=== PATIENT | male | born 1960 | race Caucasian/White ===

== ENCOUNTER 2017-10-02 08:15 | Inpatient (IN) | payer OTHER ==
[2018-02-19] MEDS ORDERED: TRANEXAMIC ACID 3,000 MG in NS (SYRINGE) 50 ML IRR ONE (06:00)
[2018-02-19] MEDS ORDERED: POVIDONE-IODINE 20 ML in SODIUM CL IRRIG SOLUTION 500 ML IRR ONE (06:00)
[2018-02-19] MEDS ORDERED: ROPIVACAINE 0.2% 80 MG, EPINEPHrine 0.2 MG, KETOROLAC TROMETHAMINE 30 MG in SYRINGE 0 ML IU ONE (06:00)
[2018-02-19] MEDS ORDERED: TRANEXAMIC ACID 1,000 MG in NS 100 ML IV ONE (06:00)
[2018-02-19] MEDS ORDERED: GABAPENTIN 300 MG CAP PO ONE (09:17)
[2018-02-19] MEDS ORDERED: ACETAMINOPHEN 325 MG TAB PO ONE (09:17)
[2018-02-19] MEDS ORDERED: DEXAMETHASONE 4 MG/ML VIAL IVP ONE (09:17)
[2018-02-19] MEDS ORDERED: ceFAZolin 2 GM/DEXTROSE 100 ML IV ONE (09:17)
[2018-02-19] MEDS ORDERED: ONDANSETRON 4 MG/2 ML VIAL IVP ONE (09:17)
[2018-02-19] MEDS ORDERED: FAMOTIDINE 20 MG TAB PO ONE (09:17)
[2018-02-19] MEDS ORDERED: LIDOCAINE 1% 2 ML INJ ID PRN (09:20)
[2018-02-19] MEDS ORDERED: LR 1,000 ML IV ONE (09:20)
[2018-02-19] MEDS ORDERED: LIDOCAINE 2% 5 ML SDV ONE (09:52)
[2018-02-19] MEDS ORDERED: PHENYLEPHRINE 10 MG/ML SDV ONE (09:52)
[2018-02-19] MEDS ORDERED: fentaNYL 100 MCG/2 ML INJ ONE (09:52)
[2018-02-19] MEDS ORDERED: TRANEXAMIC ACID 3,000 MG/50 ML BAG IRR ONE (09:52)
[2018-02-19] MEDS ORDERED: BUPIVACAINE/DEXTROSE 7.5MG/ML 2 ML SPINAL AMP SP ONE (09:52)
[2018-02-19] MEDS ORDERED: PROPOFOL/EMULSION 500 MG/50 ML BOTTLE IV ONE ×2 (09:52→12:10)
[2018-02-19] MEDS ORDERED: ceFAZolin 1 GM/5 ML SYR ONE (09:53)
--- NOTE | 2018-02-19 10:20 | PDHPUP ---
History & Physical Update H&P update statement: This history and physical update is based on an assessment of the patient which was completed after admission or registration (within 24 hours), but prior to the surgery/procedure. H&P update: H&P reviewed & patient examined
[2018-02-19 10:22] LABS: PLATELET COUNT 204 10^3/uL (150-400)
--- NOTE | 2018-02-19 10:31 | PDANEPAE ---
ANE History of Present Illness DJD R hip, here for R BABAR ANE Past Medical History - Cardiovascular History Hx Hypertension: No Hx Arrhythmias: No Hx Chest Pain: No Hx Coronary Artery / Peripheral Vascular Disease: No Hx CHF / Valvular Disease: No Hx Palpitations: No Cardiovascular History Comment: orthostatic hypotension - Pulmonary History Hx COPD: No Hx Asthma/Reactive Airway Disease: No Hx Recent Upper Respiratory Infection: No Hx Oxygen in Use at Home: No Hx Sleep Apnea: No Sleep Apnea Screening Result - Last Documented: Negative - Neurologic History Hx Cerebrovascular Accident: No Hx Seizures: No Hx Dementia: No - Endocrine History Hx Diabetes: No - Renal History Hx Renal Disorders: No - Liver History Hx Hepatic Disorders: No - Neurological & Psychiatric Hx Hx Neurological and Psychiatric Disorders: Yes Neurological / Psychiatric History Comment: depression - Cancer History Hx Cancer: Yes Cancer History Comment: skin CA on nose - Congenital Disorder History Hx Congenital Disorders: No - GI History Hx Gastrointestinal Disorders: No - Other Health History Other Health History: ezcema - right foot. osteoarthritis, right hip - Chronic Pain History Chronic Pain: No - Surgical History Prior Surgeries: appendectomy, 14 yrs old ANE Review of Systems Review of Systems: - Exercise capacity METS (RN): 5 METS ANE Patient History - Allergies Allergies/Adverse Reactions: No Allergies [NKDA] Allergy (Verified 02/10/18 09:04) - Home Medications Home Medications: Fludrocortisone Acetate 02/18/18 [Last Taken 02/18/18] Wellbutrin Xl 02/18/18 [Last Taken 02/19/18 07:30] - Smoking Hx Smoking Status: Never smoked - Family Anes Hx Family Hx Anesthesia Complications: none ANE Labs/Vital Signs - Labs Result Diagrams: 02/19/18 10:10 - Vital Signs Blood Pressure: 126/87 Heart Rate: 58 Respiratory Rate: 16 O2 Sat (%): 96 Height: 187.96 cm Weight: 104.326 kg ANE Physical Exam - Airway Neck exam: FROM Mallampati Score: Class 2 Mouth exam: normal dental/mouth exam - Pulmonary Pulmonary: no respiratory distress - Cardiovascular Cardiovascular: regular rate and rhythym - ASA Status ASA Status: II ANE Anesthesia Plan Anesthesia Plan: MAC, spinal Total IV Anesthesia: No
[2018-02-19] MEDS ORDERED: oxyCODONE IR 5 MG TAB PO PRN ×2 (11:37→13:02)
[2018-02-19] MEDS ORDERED: DEXAMETHASONE 4 MG/ML VIAL IVP PRN (11:37)
[2018-02-19] MEDS ORDERED: MEPERIDINE 25 MG/0.5 ML AMP IVP PRN (11:37)
[2018-02-19] MEDS ORDERED: fentaNYL 100 MCG/2 ML INJ IVP PRN (11:37)
[2018-02-19] MEDS ORDERED: LR 500 ML IV PRN (11:37)
[2018-02-19] MEDS ORDERED: PROMETHAZINE HCL 25 MG/ML INJ IVP PRN ×2 (11:37→13:02)
[2018-02-19] MEDS ORDERED: HYDROmorphONE/DILAUDID 2 MG/ML INJ IVP PRN (11:37)
[2018-02-19] MEDS ORDERED: ONDANSETRON 4 MG/2 ML VIAL IVP PRN ×2 (11:37→13:02)
[2018-02-19] MEDS ORDERED: NALOXONE HCL 0.4 MG/ML INJ IVP PRN (11:37)
--- NOTE | 2018-02-19 12:46 | POSTOPPROG ---
Post Op Note Date of Operation: 02/19/18 Surgeon: José Kelly Associate Director Of Nursing: Zaria Anesthesiologist: Radha Anesthesia: IV Sedation, Spinal Post-op Diagnosis: Right hip severe degenerative arthritis Procedure: Right hip [place] hip resurfacing arthroplasty Inf/Abcess present in the surg proc area at time of surgery?: No EBL: [id number]
[2018-02-19] MEDS ORDERED: LACTULOSE 20 GM/30 ML UDCUP PO PRN (13:02)
[2018-02-19] MEDS ORDERED: MAGNESIUM HYDROXIDE 30 ML UDCUP PO PRN (13:02)
[2018-02-19] MEDS ORDERED: ONDANSETRON DISINTEGRATING 4 MG TAB PO PRN (13:02)
[2018-02-19] MEDS ORDERED: BISACODYL 10 MG SUPP PR PRN (13:02)
[2018-02-19] MEDS ORDERED: traMADol 50 MG TAB PO PRN (13:02)
[2018-02-19] MEDS ORDERED: NS 500 ML IV PRN (13:02)
[2018-02-19] MEDS ORDERED: METOCLOPRAMIDE 10 MG/2 ML VIAL IVP PRN (13:02)
[2018-02-19] MEDS ORDERED: POLYETHYLENE GLYCOL 3350 17 GM PKT PO PRN (13:02)
[2018-02-19] MEDS ORDERED: diphenhydrAMINE 25 MG CAP PO PRN (13:02)
[2018-02-19] MEDS ORDERED: TEMAZEPAM 15 MG CAP PO PRN (13:02)
[2018-02-19] MEDS ORDERED: CYCLOBENZAPRINE 10 MG TAB PO PRN (13:02)
[2018-02-19] MEDS ORDERED: DIPHENOXYLATE/ATROPINE LOMOTIL 1 TAB PO PRN (13:02)
[2018-02-19] MEDS ORDERED: PROMETHAZINE HCL 25 MG SUPPR PR PRN (13:02)
--- NOTE | 2018-02-19 13:22 | GOP ---
DATE OF OPERATION: 02/19/2018 SURGEON: José Kelly MD RESIDENTIAL SERVICE TECHNICIAN: Tian Phipps, [facility] and Lorenzo Hoffmann, PAC. ANESTHESIA: A combination of Marcaine, spinal, and IV sedation. ANESTHESIOLOGIST: Dr. Augustina Garcia. PREOPERATIVE DIAGNOSIS: Right hip severe degenerative arthritis. POSTOPERATIVE DIAGNOSIS: Right hip severe degenerative arthritis. PROCEDURE PERFORMED: Right hip [place] hip resurfacing arthroplasty. FINDINGS: ESTIMATED BLOOD LOSS: About 400 cc. I used a [employer] [place] hip resurfacing system. The acetabular component was 60 mm in d iameter and press-fit. The femoral head was 54 mm and cemented. He was awakened from anesthesia and rolled to the supine position on his [facility]. A long-leg compressive stocking and SCD were applied to the operative leg. An abduction pillow was placed between his knees. He was taken to PAC U in satisfactory condition. There were no recognized intraoperative complications. DESCRIPTION OF PROCEDURE: The patient was given 2 g of IV Ancef preoperatively within 60 minutes of surgery. He also received 1000 mg of IV tranexamic acid. He was placed on the operating room table and given spinal anesthesia with Marcaine by Dr. Garcia. He was then placed supine and given IV sedat ion. A Lee catheter was not used. He wore a compressive stocking and SCD on the nonoperative leg. He was rolled to the left lateral decubitus position. An axillary roll was used, and all pressure points were padded. His position was secured with the pegboard table attachment. I was careful to l ock his pelvis in a vertical position. His perineum was isolated with plastic adhesive drapes. His right hip and lower extremity were prepped with ChloraPrep. They were draped free using sterile shee ts, stockinette, and Ioban plastic adhesive drape. The [employer] time-out was performed to verify the correct patient identity and the c orrect surgical side and site. The [place] time-out was also performed. I made a 7-inch straight oblique posterolateral hip skin incision. The subcutaneous tissues were sha rply divided and hemostasis was obtained using electrocautery. The fascia steven was identified and sp lit along the axis of its fibers. I curved posteriorly and proximally, and split the fascia of the g luteus shyam and bluntly split the muscle fibers in line with our orientation. His sciatic nerve w as identified and protected throughout the procedure. The Charnley self-retaining retractor was inse rted. The external rotators and the posterior hip capsule were divided as separate layers at the bas e of the femoral neck, tagged, and reflected posteriorly. The gluteus shyam tendon was divided and tagged in order to improve exposure and release tension on the sciatic nerve. His hip was dislocate d posteriorly. Severe degenerative changes were present. I used a sizing gauge to check the diamete r of the neck and concluded that 54 mm was the proper head size. I performed a circumferential capsu lotomy. I was able to retract the femoral head anteriorly and superiorly, and hold it out of place w ith appropriate retractors. The remnant of his damaged labrum was completely excised. His acetabulu m was reamed sequentially up to 60 mm. I selected the Lynne monoblock porous-coated acetabular component with an outside diameter of 60 mm. This was firmly impacted and was a very tight fit. I w as careful to determine proper inclination and anteversion. I used the transverse acetabular ligamen t remnant and other acetabular bony landmarks to help me determine proper cup orientation. He had a large anterior neck osteophyte, which I removed with an osteotome and rongeur. I removed a small pos terior-inferior osteophyte with a rongeur. I was careful to leave a good lip of bone and capsule ext ending beyond the anterior-inferior lip of the metal cup. I then returned to preparation of the femoral head. Using appropriate jigs and guides, I inserted a guide pin in the femoral head and neck. I was careful to position it in such a way that there would be no notching of the neck. The large sterile metal goniometer was used to check the neck shaft angl e. I reamed over the guide pin and inserted the reaming guide. I then used the cylindrical reamer d own to the head and neck junction. This was followed by the flat reamer and the chamfer reamer. The head was sized for 54 mm. There was no impingement or damage to the neck. He had large anterior ne ck osteophytes, which I removed with a rongeur. I drilled a small hole in the lesser trochanter and inserted a suction cannula to create negative pressure in the medullary canal. Small holes were dril led on the flattened chamfer surfaces of the prepared head for cement anchors. The head was thorough ly cleaned with the pulsating lavage and carefully dried. I used a CarboJet device to blow dry the c ancellous surfaces. A single batch of Simplex cement with tobramycin was mixed. At about 50 seconds , I poured the liquid cement into the head component, inserted it onto the femoral head and impacted it into place. Excess cement was removed before it hardened. The acetabulum was irrigated, cleaned, and inspected, and the hip was reduced. Stability and range o f motion were checked. I placed my finger along the anterior aspect of the acetabular component and flexed the hip to 100 degrees. There was no anterior impingement. The suction cannula in the lesser trochanter was removed. The wound was thoroughly irrigated with a dilute Betadine solution. 40 cc of the joint anesthetic cocktail were injected into the capsule, the deep musculature, and the subcut aneous tissues along the skin edges. 50 cc of tranexamic acid solution was instilled locally into th e wound. It was left in place for several minutes. His sciatic nerve was re-inspected and looked un harmed. The external rotators and the posterior hip capsule were repaired in separate layers with #2 FiberWire sutures through drill holes in the greater trochanter. The gluteus shyam tendon was rep aired with two #2 [id number] FiberWire sutures. The fascia steven was repaired first with 2 inter rupted kiqmst-qj-valed #2 FiberWire sutures followed by a running #2 barbed Ethicon Stratafix PDO sut ure. The subcutaneous tissues were closed with a running 0 barbed Ethicon Stratafix [place] derm suture . The skin was closed with a running 3-0 barbed Ethicon Stratafix [place] derm subcuticular suture. Th e skin edges were reapproximated and sealed with Dermabond glue. The wound was covered with a large sterile Mepilex waterproof dressing. The sacral Mepilex dressing was also applied. COUNTS: The sponge and needle count were correct on 2 occasions. Tian Phipps CFA and Kurt Hoffmann PAC acted as surgical assistants. Their assistance w as a medical necessity. /[id number]/MODL
[2018-02-19] MEDS ORDERED: LR 1,000 ML IV SCH (13:30)
--- NOTE | 2018-02-19 14:08 | PDMN ---
Medical Necessity Medical necessity: Pt meets int criteria per MD order and [facility] [place] [facility], Hip Resurfacing, CPT 78217, Medicare inpt only list. 57 y/o admitted for R hip Lynne hip resurfacing arthroplasty and post-op care, anticipate>2MN.
--- NOTE | 2018-02-19 15:54 | POSTANESTH ---
Post Anesthetic Evaluation Cardiovascular Status: Normal, Stable Respiratory Status: Normal, Stable Level of Consciousness/Mental Status: Can Participate in Eval Pain Control: Adequate, Prn Tx Ordered Nausea/Vomiting Control: Adequate, Prn Tx Ordered Complications Possibly Related to Anesthesia: None Noted (no questions or complaints)
[2018-02-19] MEDS: ceFAZolin 2 GM/DEXTROSE 100 ML IV SCH (17:24)
[2018-02-19] MEDS: ACETAMINOPHEN 325 MG TAB PO SCH ×2 (17:27→23:51)
[2018-02-19] MEDS: KETOROLAC 15 MG/1 ML SDV IVP SCH ×2 (17:28→23:51)
[2018-02-19] MEDS: SENNOSIDES/DOCUSATE SODIUM TAB PO SCH (20:05)
[2018-02-19] MEDS: FAMOTIDINE 20 MG TAB PO SCH (20:06)
[2018-02-19] MEDS: ASPIRIN 325 MG TAB PO SCH (20:09)
[2018-02-20] MEDS: ceFAZolin 2 GM/DEXTROSE 100 ML IV SCH (04:24)
[2018-02-20] MEDS: KETOROLAC 15 MG/1 ML SDV IVP SCH (05:20)
[2018-02-20] MEDS: ACETAMINOPHEN 325 MG TAB PO SCH (05:20)
--- NOTE | 2018-02-20 07:45 | SOAPPROG ---
SOAP Progress Note Assessment/Plan: Assessment: Afebrile. Awake and alert. Has been up and walking in room. Mild pain. Dsg is dry. Sciatic nerve intact. H/H is good. Voiding. Plan: PT today. DC later today. 02/20/18 07:43 Objective: Vital Signs Temp Pulse Resp BP Pulse Ox 36.8 C 61 16 99/61 L 94 02/20/18 04:00 02/20/18 04:00 02/20/18 04:00 02/20/18 04:00 02/20/18 04:00 Laboratory Results 02/20/18 05:34 02/19/18 02/20/18 02/21/18 05:59 05:59 05:59 Intake Total 3300 Output Total 2250 Balance 1050 ICD10 Worksheet Patient Problems: Problems Problem Status Onset Osteoarthritis of right hip Acute
--- NOTE | 2018-02-20 08:11 | GDS ---
ADMISSION DIAGNOSIS: Right hip severe degenerative arthritis. DISCHARGE DIAGNOSIS: Right hip severe degenerative arthritis. PROCEDURE PERFORMED: 02/19/2018, degenerative right hip [place] hip resurfacing arthroplasty. POSTOPERATIVE COMPLICATIONS: None. CONDITION ON DISCHARGE: Improved. DESCRIPTION OF HOSPITAL COURSE: The patient was admitted to the hospital on the morning of surgery. His admission white blood cell count was 3230. H and H and platelet count were normal. The same da y, under a combination of Marcaine, spinal, and IV sedation, he underwent a right hip [place] hip resurfacing arthroplasty. Postoperatively, he was treated with multimodal DVT prophylaxis, including aspirin. On the first postoperative day his hemoglobin and hematocrit were 13.9 and 40.0. He was s een by Physical Therapy and made rapid progress with ambulation and stairs. By the time of discharge , he was afebrile, his wound was clean and dry, and he was independent walking. DISPOSITION: Patient discharged to his home. He will have outpatient physical therapy. He may prog ress to full weightbearing on the right as tolerated. Use BARNEY stockings for 1 week. Continue aspiri n 325 mg p.o. daily for 21 days. He has prescriptions for oxycodone, tramadol and Celebrex for pain control. I will see him back in the office on March 13, 2018. If there are any problems, he is t o call me at the office. The patient does not have a primary care doctor. /[id number]/MODL
[2018-02-20 08:29] VITALS: BP 101/58
[2018-02-20] MEDS: ASPIRIN 325 MG TAB PO SCH (08:59)
[2018-02-20] MEDS ORDERED: FLUDROCORTISONE ACETATE 0.1 MG TAB PO SCH (09:00)
[2018-02-20] MEDS ORDERED: buPROPion XL 150 MG TAB PO SCH (09:00)
[2018-02-20] MEDS ORDERED: FERROUS SULFATE 140 MG TAB.ER PO SCH (09:00)
[2018-02-20] MEDS: FAMOTIDINE 20 MG TAB PO SCH (09:01)
[2018-02-20] MEDS: SENNOSIDES/DOCUSATE SODIUM TAB PO SCH (09:01)
--- NOTE | 2018-02-20 16:42 | ASMTLACE ---
[facility] Length of stay for Answers: 2 days current admission Acuity / Level of Answers: Yes Care: Did the patient have an inpatient admission? # of Emergency department Answers: 0 visits in the last 6 months Social determinants Answers: Mental health diagnosis (anxiety, depression, pers onality disorders, etc.) Score: 8 Date Signed: 02/20/2018 04:41 PM Electronically Signed By:NIRANJAN Garcia
--- NOTE | 2018-02-20 16:44 | ASMTCMCOM ---
CM Note CM Note Notes: Pt s/p planned OA of hip. PT and MD rec outpatient. No CM d/c needs identified. Date Signed: 02/20/2018 04:43 PM Electronically Signed By:NIRANJAN Garcia
== END 2018-02-20 10:39 | disposition home or self-care (01) | DRG 470 ==
LOC: F3N 02-19 09:05 → OBSVTOIN 02-19 13:04 → F3N 02-19 13:31 → F2W 02-19 13:44 → PREINTOOBSV 02-19 13:59 → F3N 02-19 14:21
PROVIDERS: ADMIT Orthopaedic Surgery; ATTEND Orthopaedic Surgery
PROC: 0SU90BZ Supplement Right Hip Joint with Resurfacing Device, Open Approach (ICD-10-PCS; principal; 2018-02-19 10:30)
DX: M16.11 Unilateral primary osteoarthritis, right hip (principal)
CPT/HCPCS: 97116-GP; 97161-GP; 97165-GO; 97535-GO; C1713; J0171; J0690; J1100; J1885; J2370; J2405; J2704; J2795; J3010